=== PATIENT | female | born 1945 | race Caucasian/White ===

== ENCOUNTER 2017-10-02 03:45 | Inpatient (IN) | payer OTHER ==
[~2017-10-02] VITALS: Ht 162.6 cm; Wt 70.3 kg
--- NOTE | ~2017-10-02 | EEG ---
[facility] [address] [address] ELECTROENCEPHALOGRAM Name: GE[place] SMALL Luz Marina Room #: 422-P ADM IN M.R.#: [id number] Admission: 10/02/17 Attend Phys: Cb Gamez Discharge: Date of : 49 Report #: [id number] THIS REPORT FOR: //name// CC: VIKI physician/PCP Cb Vincent DATE OF SERVICE: 10/03/2017 This patient is being evaluated for altered mental status. EEG was done by placing the electrodes by standard 10-20 system of electrode placement. Both referential and sequential montages were used for recording. Background activity in this patient's EEG is about 11 Hz and 40 microvolt. A lot of artifact is present. Some of it is motion artifact and some of it is eye movement artifact. It was confirmed with the retail merchandiser technician that the patient continued to move and it is all artifact. Photic stimulation is unremarkable. Throughout the records, no active epileptiform activity was noticed. IMPRESSION: This patient's EEG is masked by a lot of artifact. That makes the interpretation of this EEG difficult. But, the best I can tell, there does not appear to be any active epileptiform activity. Thank you very much for this referral. By: [id number] Todd Modi MD /robert
--- NOTE | ~2017-10-02 | EKG ---
[place] [address] [facility] [place] [address] ELECTROCARDIOGRAM REPORT Name: GE[place]IA SMALL Room #: 422-P [facility] IN M.R.#: [id number] Admission: 10/02/17 Attend Phys: Cb Vincent Discharge: Date of : 49 Report #: [id number] THIS REPORT FOR: //name// [facility] ED Test Date: 2017-10-02 Test Time: 03:49:26 Pat Name: GEORGIA SMALL Department: Room: 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: LILIAM : 1945 Requested By: Oumar Cardenas Order Number: [id number] MD: Anjum Sibley Measurements Intervals [place] Rate: 65 P: 48 OK: 159 QRS: -23 QRSD: 100 T: 66 QT: 436 QTc: 454 Interpretive Statements Sinus rhythm Borderline left axis deviation Poor R wave progression No previous ECG available for comparison Electronically Signed On 10-02-2017 8:06:06 FINANCE ASSISTANT by Anjum Sibley [email or web address] <ELECTRONICALLY SIGNED> By: Anjmu Sibley MD, [facility] 10/02/17 [id number] [id number] Anjum Sibley MD, FACC /EPI
[~2017-10-02 03:45] MED LIST: ACIPHEX 20 MG T20 MG PO; ASPIRIN325 PO; CENTRUM SILVER1 EAC4 PO; CLOPIDOGREL75 MG PO; CRESTOR10 MG PO; ETODOLAC 400 M400 M1 PO; FLONASE 0.05%50 MCG NASAL; IMDUR60 MG PO; ISOSORBIDE DINI20 M2 PO; KLOR-CON 1010 MEQ PO; LASIX 20 MG TAB20 MG PO; MACROBID 100 M100 M1 PO; MOBIC15 MG PO; NORVASC5 MG PO; PROTONIX40 M1 PO; PYRIDIUM100 M1 PO; TOPROL XL25 MG PO; TOPROL XL50 MG PO; TRAZODONE 150150 M1 PO; VENTOLIN HFA 1818 GM INH; VITAMIN D1000 UNI1 PO; VITAMIN D31000 UNI2 PO; WELLBUTRIN SR150 MG PO; WELLBUTRIN XL300 MG PO; ZANAFLEX4 MG PO; ZANTAC 150MG T150 MG PO; ZOLOFT25 MG PO; ZYRTEC10 MG PO
[2017-10-02 03:50] VITALS: BP 123/71
[2017-10-02 04:37] LABS: HEMATOCRIT 46.1 % (37.0-47.0); HEMOGLOBIN 15.5 gm/dL (12.0-15.0); MCH 31.5 pg (26.0-34.0); MCHC 33.6 g/dL (28.0-37.0); MCV 93.8 fL (80.0-100.0); RBC 4.92 mil/uL (4.20-5.00); WBC 11.5 thou/uL (4.0-11.0)
[2017-10-02 04:51] LABS: ANION GAP 9 mmol/L (7-16); BUN 18 mg/dL (7-18); CALCIUM 9.5 mg/dL (8.5-10.1); CHLORIDE 105 mmol/L (98-107); CO2 26 mmol/L (21-32); CREATININE 0.9 mg/dL (0.6-1.0); GLUCOSE 112 mg/dL (74-106); SODIUM 140 mmol/L (136-145)
[2017-10-02 05:00] LABS: TROPONIN-I < 0.04 ng/mL (<0.06)
[2017-10-02 05:16] LABS: URINE BILIRUBIN NEGATIVE (Negative); URINE BLOOD 1+ (Negative); URINE COLOR YELLOW; URINE GLUCOSE-RANDOM* NEGATIVE (Negative); URINE KETONES NEGATIVE (Negative); URINE PROTEIN (DIPSTICK) NEGATIVE (Negative); URINE UROBILINOGEN 0.2 E.U./dl (0.2-1.0)
[2017-10-02 05:19] LABS: URINE LEUKOCYTES-REFLEX 3+ (Negative)
[2017-10-02 05:22] LABS: AMP/METHAMP Negative (Negative); BARBITURATES Negative (Negative); BENZODIAZEPINES Negative (Negative); COCAINE Negative (Negative); METHADONE Negative (Negative); OPIATES Negative (Negative); PCP Negative (Negative); THC Negative (Negative)
[2017-10-02 05:32] LABS: CRYSTALS None Seen /LPF (None Seen); SQUAMOUS 0-3 Few /LPF (0-3); URINE RBC 3-10 Few /HPF (0-2); URINE WBC-REFLEX >25 Many /HPF (0-5)
[2017-10-02 05:33] LABS: CASTS None Seen /LPF (None Seen)
[2017-10-02 06:45] VITALS: BP 132/53
[2017-10-02 08:11] VITALS: BP 144/94
[2017-10-02 15:26] VITALS: BP 111/77
[2017-10-03 03:23] VITALS: BP 134/73
[2017-10-03 08:40] VITALS: BP 126/69
[2017-10-03 15:45] VITALS: BP 154/89
[2017-10-03 20:00] VITALS: BP 134/59
[2017-10-04 06:00] VITALS: BP 133/63
[2017-10-04 06:15] LABS: ABSOLUTE NEUTROPHILS 3.9 thou/uL (1.4-8.2); BASOPHILS 0.6 % (0.0-2.0); EOSINOPHILS 3.5 % (0.0-3.0); HEMATOCRIT 43.2 % (37.0-47.0); HEMOGLOBIN 14.6 gm/dL (12.0-15.0); LYMPHOCYTES 24.8 % (24.0-44.0); MCH 31.4 pg (26.0-34.0); MCHC 33.8 g/dL (28.0-37.0); MONOCYTES 10.2 % (1.0-8.0); PLATELET COUNT 153 thou/uL (150-400); POLYS 60.9 % (36.0-66.0); RBC 4.64 mil/uL (4.20-5.00); RDW 12.9 % (10.5-14.5); WBC 6.4 thou/uL (4.0-11.0)
[2017-10-04 06:23] LABS: MANUAL DIFF NO
[2017-10-04 06:27] LABS: CREATININE 0.8 mg/dL (0.6-1.0); POTASSIUM 4.1 mmol/L (3.5-5.1)
[2017-10-04 16:21] VITALS: BP 133/63
[2017-10-04 16:25] VITALS: BP 133/63
[2017-10-04 16:30] VITALS: BP 134/62
[2017-10-04 19:11] VITALS: BP 141/73
[2017-10-05 03:50] VITALS: BP 132/65
[2017-10-05] MEDS ORDERED: CIPRO500 MG PO (09:27)
[2017-10-05 09:50] VITALS: BP 133/63
== END 2017-10-05 13:30 | disposition home health service (06) | DRG 689 ==
LOC: ER 03:45 → EROBS 06:25 → 4E 06:25
PROVIDERS: Emergency Medicine; Family Medicine
DX: N39.0 Urinary tract infection, site not specified (principal); G93.40 Encephalopathy, unspecified; I10 Essential (primary) hypertension; E11.9 Type 2 diabetes mellitus without complications; I25.10 Atherosclerotic heart disease of native coronary artery without angina pectoris; E86.0 Dehydration; Z60.2 Problems related to living alone; F32.9 Major depressive disorder, single episode, unspecified; F03.90 Unspecified dementia, unspecified severity, without behavioral disturbance, psychotic disturbance, mood disturbance, and anxiety; Z95.1 Presence of aortocoronary bypass graft; Z86.73 Personal history of transient ischemic attack (TIA), and cerebral infarction without residual deficits; Z88.1 Allergy status to other antibiotic agents; Z87.891 Personal history of nicotine dependence; Z79.899 Other long term (current) drug therapy; Z79.82 Long term (current) use of aspirin
CPT/HCPCS: 10084